=== PATIENT | female | born 1955 | race Caucasian/White ===

== ENCOUNTER 2019-08-20 13:57 | Outpatient (CLI) | payer OTHER, SELFPAY ==
--- NOTE | ~2019-08-20 | XR_ITS ---
EXAMINATION: XR chest 2V DATE: 08/20/2019 14:37 INDICATION: Bronchitis. Cough. TECHNIQUE: Frontal and lateral views of the chest were obtained. COMPARISON: None. FINDINGS: There is mild atelectasis in right lower lung zone. No pleural effusion or pneumothorax. Th e heart size is normal. IMPRESSION: 1. Mild atelectasis in right lower lung zone. Reviewed, dictated and finalized at location A.
--- NOTE | ~2019-08-20 | XR_ITS ---
EXAMINATION: XR sinus min 3V DATE: 08/20/2019 14:37 INDICATION: Chronic sinusitis. Frontal sinus pressure. Cough. TECHNIQUE: 5 views of the paranasal sinuses were obtained. COMPARISON: Sinuses radiographs 03/03/2019 FINDINGS: The nasal septum is at the midline. No fracture. The paranasal sinuses are clear. IMPRESSION: 1. Normal paranasal sinuses. Reviewed, dictated and finalized at location A.
[2019-08-20 15:41] LABS: Basophils Percent Auto 0.3 % (0.2-1.2); Eosinophils Absolute Auto 0.1 K/mm3 (0-0.3); Eosinophils Percent Auto 1.3 % (0-4.4); Hematocrit 37.9 % (37.0-47.0); Immature Granulocyte Absolute 0.03 K/mm3 (0.00-0.031); Immature Granulocyte Percent A 0.3 % (0-0.5); Lymphocytes Absolute Auto 2.93 K/mm3 (0.9-3.2); Lymphocytes Percent Auto 33.4 % (18.3-44.2); Mean Corpuscular HGB Conc 34.3 g/dl (32-36); Mean Corpuscular Hemoglobin 31.2 pg (26-34); Mean Corpuscular Volume 90.9 fl (80-100); Mean Platelet Volume 8.7 fl (7.4-10.4); Monocytes Absolute Auto 0.6 K/mm3 (0.1-0.6); Monocytes Percent Auto 7.1 % (2.6-8.5); Neutrophils Absolute Auto 5.1 K/mm3 (1.3-6.7); Neutrophils Percent Auto 57.6 % (45.5-73.1); Platelet Count Result 274 k/mm3 (150-375); Red Blood Count 4.17 M/mm3 (4.2-5.4); Red Cell Distribution Width 12.8 % (11.5-14.5); White Blood Count 8.8 K/mm3 (4.5-10.0)
== END 2019-08-20 13:58 | disposition home or self-care (01) ==
PROVIDERS: PCP Internal Medicine; Visit Provider Internal Medicine
DX: J32.9 Chronic sinusitis, unspecified (principal); J40 Bronchitis, not specified as acute or chronic; J06.9 Acute upper respiratory infection, unspecified; R91.8 Other nonspecific abnormal finding of lung field
CPT/HCPCS: 36415; 70220; 71046; 85025

== ENCOUNTER 2019-10-22 11:47 | Outpatient (CLI) | payer OTHER, SELFPAY ==
--- NOTE | ~2019-10-22 | XR_ITS ---
EXAMINATION: XR knee LT min 4V DATE: 10/22/2019 12:11 INDICATION: Left knee pain. TECHNIQUE: 4 views of left knee were obtained. COMPARISON: None. FINDINGS: Bone alignment is normal. No fracture. There is mild tricompartmental osteoarthritis. No kn ee joint effusion. IMPRESSION: 1. Mild left knee osteoarthritis. Reviewed, dictated and finalized at location A.
== END 2019-10-22 11:48 | disposition home or self-care (01) ==
PROVIDERS: PCP Internal Medicine; Visit Provider Internal Medicine
DX: M17.12 Unilateral primary osteoarthritis, left knee (principal)
CPT/HCPCS: 73564

== ENCOUNTER 2019-10-23 13:17 | Outpatient (CLI) | payer OTHER, SELFPAY ==
--- NOTE | ~2019-10-23 | US_ITS ---
EXAMINATION: US venous doppler [facility] DATE: 10/23/2019 15:17 INDICATION: Left lower limb pain. TECHNIQUE: Grayscale ultrasound images without and with compression and Doppler ultrasound images of the left lower extremity veins were obtained. COMPARISON: Ultrasound 11/09/2005 FINDINGS: The visualized portions of left common femoral vein, profunda (deep) femoral vein, femoral vein, popl iteal vein, peroneal veins, posterior tibial veins, and greater saphenous vein outflow are patent. IMPRESSION: 1. No deep venous thrombosis. Reviewed, dictated and finalized at location A.
[2019-10-23 13:43] LABS: Basophils Percent Auto 0.5 % (0.2-1.2); Eosinophils Absolute Auto 0.1 K/mm3 (0-0.3); Eosinophils Percent Auto 1.6 % (0-4.4); Hematocrit 40.7 % (37.0-47.0); Hemoglobin 13.5 g/dL (12.0-15.0); Immature Granulocyte Absolute 0.03 K/mm3 (0.00-0.031); Immature Granulocyte Percent A 0.4 % (0-0.5); Lymphocytes Absolute Auto 2.42 K/mm3 (0.9-3.2); Lymphocytes Percent Auto 28.3 % (18.3-44.2); Mean Corpuscular HGB Conc 33.2 g/dl (32-36); Mean Corpuscular Hemoglobin 31.3 pg (26-34); Mean Corpuscular Volume 94.4 fl (80-100); Monocytes Absolute Auto 0.5 K/mm3 (0.1-0.6); Monocytes Percent Auto 5.8 % (2.6-8.5); Neutrophils Absolute Auto 5.4 K/mm3 (1.3-6.7); Neutrophils Percent Auto 63.4 % (45.5-73.1); Platelet Count Result 271 k/mm3 (150-375); Red Blood Count 4.31 M/mm3 (4.2-5.4); Red Cell Distribution Width 13.2 % (11.5-14.5); White Blood Count 8.6 K/mm3 (4.5-10.0)
[2019-10-23 13:52] LABS: INR 0.9; Prothrombin Time 12.3 Seconds (11.1-14.7)
== END 2019-10-23 13:18 | disposition home or self-care (01) ==
PROVIDERS: PCP Internal Medicine; Visit Provider Internal Medicine
DX: M25.462 Effusion, left knee (principal); M25.562 Pain in left knee; M79.662 Pain in left lower leg; S89.92XA Unspecified injury of left lower leg, initial encounter; Z79.899 Other long term (current) drug therapy
CPT/HCPCS: 36415; 85025; 85610; 93971

== ENCOUNTER 2020-05-25 08:11 | Outpatient (CLI) | payer OTHER, SELFPAY ==
--- NOTE | ~2020-05-25 | US_ITS ---
US art doppler w press LE BI INDICATION: Atherosclerosis. TECHNIQUE: Segmental pressures and plethysmographic and Doppler waveforms of the brachial and lower e xtremity arteries were obtained. COMPARISON: None. FINDINGS: Right and left brachial artery pressures of 152 mm Hg and 156 mm Hg, respectively, are concordant (no rmal difference <= 30 mmHg). The right ankle-brachial index (MARIA LUISA) is 1.06 (normal >= 0.9-1.0). The right great toe-brachial index (TBI) is 0.6 (normal >= 0.60). The left MARIA LUISA is 0.91. The left TBI is 1.01. IMPRESSION: 1. Normal bilateral ankle-brachial indices. Reviewed, dictated and finalized at location A. MOTIVE SALES REPRESENTATIVE
== END 2020-05-25 08:12 | disposition home or self-care (01) ==
LOC: ANHIMG 08:15
PROVIDERS: PCP Internal Medicine; Visit Provider Internal Medicine
DX: I25.10 Atherosclerotic heart disease of native coronary artery without angina pectoris (principal); R68.89 Other general symptoms and signs
CPT/HCPCS: 93923

== ENCOUNTER → 2020-07-22 09:44 | Outpatient (CLI) | payer OTHER, SELFPAY ==
--- NOTE | ~2020-07-22 | CT_ITS ---
EXAMINATION: CT sinus wo con DATE: 07/22/2020 10:04 INDICATION: Chronic sinusitis TECHNIQUE: Computed tomography (CT) of the paranasal sinuses was performed without intravenous contra st. The dose-length product was 271.16 mGy-cm. COMPARISON: None FINDINGS: There is no significant mucosal thickening of the paranasal sinuses. Mastoids are pneumatiz ed. Leftward nasal septal deviation. No air-fluid levels. No mucoperiosteal reaction. IMPRESSION: 1. No significant sinus disease. Reviewed, dictated and finalized at location B. INVESTIGATOR
== END ==
PROVIDERS: PCP Internal Medicine; Visit Provider Internal Medicine
DX: J32.9 Chronic sinusitis, unspecified (principal)
CPT/HCPCS: 70486

== ENCOUNTER 2020-11-16 09:52 | Outpatient (CLI) | payer OTHER, MEDICARE, SELFPAY ==
--- NOTE | ~2020-11-16 | XR_ITS ---
XR lumbar spine 2-3V 11/16/2020 10:20 Indication: Low back pain Procedure: 2 lateral views lumbar spine Comparison: No prior studies Findings: There is disc narrowing at L4-5. There is grade 1 spondylolisthesis at L4-5. No acute fract ure or traumatic malalignment. No significant alteration of alignment with flexion/extension Impression: 1: Moderate spondylosis at L4-5 with grade 1 spondylolisthesis. Reviewed, dictated and finalized at location A. Impression: 1: Moderate spondylosis at L4-5 with grade 1 spondylolisthesis.
== END 2020-11-16 09:53 | disposition home or self-care (01) ==
LOC: ANHIMG 09:58
PROVIDERS: PCP Internal Medicine; Visit Provider Internal Medicine
DX: M54.5 Low back pain (principal); G89.29 Other chronic pain; M47.816 Spondylosis without myelopathy or radiculopathy, lumbar region; M43.16 Spondylolisthesis, lumbar region
CPT/HCPCS: 72100

== ENCOUNTER → 2021-10-14 00:19 | Outpatient (CLI) | payer OTHER, MEDICARE, SELFPAY ==
[2021-10-14 11:54] LABS: Influenza A QL RT-PCR Negative (Negative); Influenza B QL RT-PCR Negative (Negative); SARS-CoV-2 RNA PCR Negative
== END ==
PROVIDERS: PCP Internal Medicine; Visit Provider Internal Medicine
DX: R05.9 Cough, unspecified (principal); R50.9 Fever, unspecified; Z20.822 Contact with and (suspected) exposure to COVID-19
CPT/HCPCS: 87502; C9803; U0003; U0005

== ENCOUNTER 2022-07-16 10:17 | Outpatient (CLI) | payer OTHER, MEDICARE, SELFPAY ==
--- NOTE | ~2022-07-16 | XR_ITS ---
EXAMINATION: XR sinus min 3V INDICATION: Chronic sinusitis TECHNIQUE: Five views of the paranasal sinuses are obtained. COMPARISON: 07/22/2020, 08/20/2019 FINDINGS: There is normal pneumatization of the paranasal sinuses. No sinus opacification is identifi ed. There is no acute abnormality of the facial bones. IMPRESSION: 1. Unremarkable sinus radiographs. Reviewed, dictated and finalized at location B. CAN FOOD COOK
== END 2022-07-16 10:18 | disposition home or self-care (01) ==
PROVIDERS: PCP Internal Medicine; Visit Provider Internal Medicine
DX: J32.9 Chronic sinusitis, unspecified (principal); J34.89 Other specified disorders of nose and nasal sinuses
CPT/HCPCS: 70220

== ENCOUNTER 2023-08-15 12:31 | Outpatient (CLI) | payer OTHER, MEDICARE, SELFPAY ==
--- NOTE | ~2023-08-15 | XR_ITS ---
Clinical Indication: Cough PA and lateral views of the chest: Comparison: 08/20/2019 Findings: The lungs are clear, without evidence of focal consolidation or pleural effusion. Cardiome diastinal silhouette is within normal limits. Bones and soft tissues are unremarkable. Impression: Normal chest. Reviewed, dictated and finalized at [facility]. ER OFF Impression: Normal chest.
== END 2023-08-15 12:32 | disposition home or self-care (01) ==
PROVIDERS: PCP Internal Medicine; Visit Provider Internal Medicine
DX: R05.9 Cough, unspecified (principal); R06.02 Shortness of breath
CPT/HCPCS: 71046

== ENCOUNTER 2023-09-03 13:36 | Outpatient (CLI) | payer OTHER, MEDICARE, SELFPAY ==
--- NOTE | 2023-09-03 13:46 | ECHO_ITS ---
Patient Info Name: Keyana Aguero Age: 68 years : 1955 Gender: Female Ht: 62 in Wt: 160 lbs BSA: 1.81 m2 HR: 80 bpm BP: 185 / 98 mmHg Technical Quality: Fair Exam Date: 09/03/2023 1:56 PM Exam Location: Echo Lab Patient Status: Outpatient Admit Date: 09/03/2023 Staff Ordering Physician: Tony Mo MD Warehouse Examiner: Sean Sears RDCS Attending Provider: Tony Mo MD Referring Physician: Chepe SCHMIDT; Exam Type: CA echo doppler color flow Study Info Indications I34.1 - Nonrheumatic mitral (valve) prolapse Complete two-dimensional, color flow and Doppler transthoracic echocardiogram is performed. Summary 1. Complete two-dimensional, color flow and Doppler transthoracic echocardiogram is performed. 2. Left ventricular chamber dimension is normal. 3. Left ventricular systolic function is normal, estimated at 60-65%. 4. The left ventricular diastolic function is grade I diastolic dysfunction. 5. E/e' 12 is mildly elevated. 6. There is trace mitral valve regurgitation. 7. There is trace tricuspid valve regurgitation. 8. No pulmonary hypertension, estimated pulmonary arterial systolic pressure is 28 mmHg. Left Ventricle E/e' 12 is mildly elevated. Left ventricular chamber dimension is normal. Left ventricular systolic function is normal, estimated at 60-65%. The left ventricular diastolic function is grade I diastolic dysfunction. Right Ventricle Right ventricular chamber dimension is normal. Right ventricular systolic function is normal. Left Atria Left atrial chamber dimension is normal. Right Atria Right atrial chamber dimension is normal. Aortic Valve The aortic valve is trileaflet. There is no aortic valve stenosis. There is no aortic valve regurgitation. Pulmonic Valve There is no pulmonic regurgitation. Mitral Valve No mitral valve prolapse. There is no mitral valve stenosis. There is trace mitral valve regurgitation. Tricuspid Valve There is trace tricuspid valve regurgitation. No pulmonary hypertension, estimated pulmonary arterial systolic pressure is 28 mmHg. Pericardium/Pleural There is no pericardial effusion. Inferior Vena Cava Normal inferior vena cava with >50% collapse upon inspiration consistent with normal right atrial pressure, 5 mmHg. Aorta The aortic root size at the sinus of Valsalva is normal. Left Ventricular Outflow Tract Name Value Normal LVOT 2D LVOT Diameter 1.9 cm LVOT Doppler LVOT Peak Gradient 7 mmHg LVOT Mean Gradient 3 mmHg LVOT VTI 22 cm LVOT VTI/AV VTI Ratio 0.8 LVOT Stroke Volume 60 ml LVOT CO 4.4 l/min LVOT CI 2.4 l/min/m2 Pulmonic Valve Name Value Normal RVOT Doppler RVOT Peak Gradient 3 mmHg PV Doppler
== END 2023-09-03 13:37 | disposition home or self-care (01) ==
LOC: ANHCARD 13:37
PROVIDERS: PCP Internal Medicine; Visit Provider Internal Medicine
DX: I34.1 Nonrheumatic mitral (valve) prolapse (principal)
CPT/HCPCS: 93306

== ENCOUNTER 2023-09-04 13:58 | Outpatient (CLI) | payer OTHER, MEDICARE, SELFPAY ==
--- NOTE | ~2023-09-04 | US_ITS ---
EXAMINATION: US thyroid DATE: 09/04/2023 15:30 INDICATION: Nontoxic multinodular goiter. TECHNIQUE: Multiple ultrasound images of the thyroid were obtained. COMPARISON: None. FINDINGS: The right thyroid lobe measures 4.3 x 1.4 x 1.6 cm. The left thyroid lobe measures 3.6 x 1.3 x 1.4 c m. In the right thyroid lobe, there is a 3 mm nodule. In the left thyroid lobe, there is a 2 mm nodu le. IMPRESSION: 1. Small thyroid nodules, likely not clinically significant. No follow-up is needed. Reviewed, dictated and finalized at location A. IMPRESSION: 1. Small thyroid nodules, likely not clinically significant. No follow-up is ne eded.
== END 2023-09-04 13:59 | disposition home or self-care (01) ==
LOC: ANHIMG 13:59
PROVIDERS: PCP Internal Medicine; Visit Provider Internal Medicine
DX: E04.2 Nontoxic multinodular goiter (principal)
CPT/HCPCS: 76536

== ENCOUNTER 2023-10-31 10:12 | Outpatient (CLI) | payer OTHER, MEDICARE, SELFPAY ==
--- NOTE | ~2023-10-31 | XR_ITS ---
EXAMINATION: XR sinus min 3V DATE: 10/31/2023 10:35 INDICATION: Chronic cough. Right sinus pressure. TECHNIQUE: 6 views of the paranasal sinuses were obtained. COMPARISON: Sinuses radiographs 07/16/2022, CT 07/22/2020 FINDINGS: The paranasal sinuses are clear. There is leftward deviation of the nasal septum. IMPRESSION: 1. Leftward deviation of the nasal septum. Reviewed, dictated and finalized at location A.
== END 2023-10-31 10:13 | disposition home or self-care (01) ==
PROVIDERS: PCP Internal Medicine; Visit Provider Internal Medicine
DX: R05.3 Chronic cough (principal); J32.9 Chronic sinusitis, unspecified; J34.2 Deviated nasal septum
CPT/HCPCS: 70220

== ENCOUNTER 2024-03-04 13:18 | Outpatient (CLI) | payer OTHER, MEDICARE, SELFPAY ==
--- NOTE | ~2024-03-04 | XR_ITS ---
EXAMINATION: XR ankle LT 2V, XR foot LT 2V DATE: 03/04/2024 13:42 INDICATION: Left foot and ankle pain post fall TECHNIQUE: 1. Anteroposterior and lateral view of the left ankle were obtained. 2. Dorsoplantar and lateral views of the left foot were obtained. COMPARISON: None. FINDINGS: Alignment of the left foot and ankle is normal. No fracture or osteochondral lesion. Mild osteoarthri tis at the first metatarsophalangeal and the few tarsal metatarsal and interphalangeal joints. Modera te size plantar calcaneal spur No ankle joint effusion. The soft tissues are unremarkable. IMPRESSION: 1. Mild polyarticular osteoarthritis in the left mid and forefoot. No acute osseous abnormality. Reviewed, dictated and finalized at location A. IMPRESSION: 1. Mild polyarticular osteoarthritis in the left mid and forefoot. No acute oss eous abnormality.
== END 2024-03-04 13:19 | disposition home or self-care (01) ==
PROVIDERS: PCP Internal Medicine; Visit Provider Internal Medicine
DX: M19.072 Primary osteoarthritis, left ankle and foot (principal)
CPT/HCPCS: 73600; 73620

== ENCOUNTER 2024-05-19 08:22 | Outpatient (CLI) | payer OTHER, MEDICARE, SELFPAY ==
--- NOTE | ~2024-05-19 | CT_ITS ---
CTA chest PE protocol Ordering provider: Tony Mo MD History: 69 years Female with . R06.02 - Shortness of breath . Comparison: None. Technique: CT angiogram chest was performed following timed intravenous injection of contrast. Thin s lice axial images and reformatted coronal images were obtained. Three dimensional reformatted images of the chest were also obtained using a [employer] workstation. . Automated exposure control and iterati ve reconstruction technique were employed. The dose-length product was 309.92 mGy-cm. 100 mL Omnipaque 350 was given IV. Findings: PULMONARY ARTERIES: No pulmonary embolus. VISUALIZED THORACIC INLET: Normal. MEDIASTINUM: Aorta/coronary arteries: Mild atheromatous disease. Heart/other: The heart is not enlarged. Lymph nodes: No mediastinal or hilar adenopathy. LUNGS: No pulmonary nodules or masses. No infiltrates or effusions. No pneumothorax. Dependent atelectatic c hanges. VISUALIZED UPPER ABDOMEN: Fat infiltration of the liver. Sliding hiatus hernia. Otherwise, the visual ized upper abdomen is normal. MUSCULOSKELETAL: Soft tissues: The superficial soft tissues are normal. Bones: Age appropriate degenerative changes of the spine. IMPRESSION: 1. No pulmonary embolism. 2. No acute cardiopulmonary pathology. 3. Fat infiltration of the liver. 4. Sliding hiatus hernia. Reviewed, dictated and finalized at location A. INUOUS IMPROVEMENT FACILITATOR
--- NOTE | ~2024-05-19 | XR_ITS ---
3 VIEWS PARANASAL SINUSES Ordering provider: Tony Mo MD History: . R05.3 - Chronic cough . Comparison: None. FINDINGS: BONES: No acute fracture as visualized. PARANASAL SINUSES: Well aerated. No air fluid levels. Mild left nasal septal deviation. SOFT TISSUES: Normal. IMPRESSION: NO EVIDENCE OF SINUS DISEASE. Reviewed, dictated and finalized at location A. RGROUND MINING SECTION FOREMAN
[2024-05-19 09:16] LABS: Basophils Percent Auto 0.5 % (0.2-1.2); Eosinophils Absolute Auto 0.1 K/mm3 (0-0.3); Eosinophils Percent Auto 0.9 % (0-4.4); Hematocrit 36.1 % (37.0-47.0); Hemoglobin 12.2 g/dL (12.0-15.0); Immature Granulocyte Absolute 0.03 K/mm3 (0.00-0.031); Immature Granulocyte Percent A 0.4 % (0-0.5); Lymphocytes Absolute Auto 1.97 K/mm3 (0.9-3.2); Lymphocytes Percent Auto 23.3 % (18.3-44.2); Mean Corpuscular HGB Conc 33.8 g/dl (32-36); Mean Corpuscular Hemoglobin 30.6 pg (26-34); Mean Corpuscular Volume 90.5 fl (80-100); Mean Platelet Volume 8.4 fl (7.4-10.4); Monocytes Absolute Auto 0.7 K/mm3 (0.1-0.6); Monocytes Percent Auto 8.6 % (2.6-8.5); Neutrophils Absolute Auto 5.6 K/mm3 (1.3-6.7); Neutrophils Percent Auto 66.3 % (45.5-73.1); Platelet Count Result 282 k/mm3 (150-375); Red Blood Count 3.99 M/mm3 (4.2-5.4); Red Cell Distribution Width 13.2 % (11.5-14.5); White Blood Count 8.5 K/mm3 (4.5-10.0)
[2024-05-19 09:27] LABS: Anion Gap 4 mmol/L (4-12); Blood Urea Nitrogen 12 mg/dL (7-17); Calcium 9.9 mg/dL (8.4-10.2); Carbon Dioxide 32 mmol/L (22-30); Chloride 93 mmol/L (98-107); Estimated Glomerular Filt Rate > 60; Glucose 104 mg/dL (65-110); Potassium 3.5 mmol/L (3.4-5.0); Sodium 129 mmol/L (137-145)
[2024-05-19 09:39] LABS: D Dimer < 0.27 ug/mL (<0.48)
== END 2024-05-19 08:23 | disposition home or self-care (01) ==
PROVIDERS: PCP Internal Medicine; Visit Provider Internal Medicine
DX: K76.0 Fatty (change of) liver, not elsewhere classified (principal); K44.9 Diaphragmatic hernia without obstruction or gangrene; R05.3 Chronic cough; J32.9 Chronic sinusitis, unspecified; Z79.899 Other long term (current) drug therapy
CPT/HCPCS: 36415; 70220; 71275; 80048; 85025; 85380; Q9967

== ENCOUNTER 2024-05-26 08:56 | Outpatient (CLI) | payer OTHER, MEDICARE, SELFPAY ==
[2024-05-26 09:37] LABS: Anion Gap 5 mmol/L (4-12); Blood Urea Nitrogen 12 mg/dL (7-17); Calcium 9.4 mg/dL (8.4-10.2); Carbon Dioxide 29 mmol/L (22-30); Chloride 96 mmol/L (98-107); Estimated Glomerular Filt Rate > 60; Glucose 89 mg/dL (65-110); Potassium 3.2 mmol/L (3.4-5.0); Sodium 130 mmol/L (137-145)
== END 2024-05-26 08:57 | disposition home or self-care (01) ==
PROVIDERS: PCP Internal Medicine; Visit Provider Internal Medicine
DX: E87.1 Hypo-osmolality and hyponatremia (principal)
CPT/HCPCS: 36415; 80048